=== PATIENT | female | born 1940 | race Caucasian/White ===

== ENCOUNTER 2023-11-17 19:02 | Inpatient (IN) | payer MEDICARE, OTHER, SELFPAY ==
[2023-11-17 15:23] VITALS: BP 124/81
[2023-11-17 16:20] VITALS: BP 142/79; BMI 23.3
--- NOTE | 2023-11-17 16:41 | ED.GENMED ---
History of Present Illness
General
Chief Complaint: Skin Problem
Source: patient and family
Exam Limitations: none
Time Seen by Provider: 11/17/23 16:07
Nursing documentation reviewed up to this point in time: agreed with
Travel History
Have you had any contact with someone who has COVID-19?: No
Do you have any symptoms of coronavirus? Fever > 100 degrees, chills, cough, shortness of breath, sore throat, loss of taste or smell, muscle aches, or headache?: No
History of Present Illness
History of Present Illness:
The patient is an 10-year-old female who reports worsening swelling and redness of her left lower leg. Patient was recently evaluated by her primary care doctor and had been placed on Keflex for the skin infection. Patient reports that despite 10
days of Keflex, the redness is spreading upwards towards her knee. She denies fevers and chills. Patient reports she is on blood thinners for A-fib. She denies fever.
Past History
Past History
ED Past Medical History: Arrthythmia, CAD and HTN
ED Past Surgical History: Cardiac
Social History
Tobacco: Other
Alcohol: Other
Drug: None
Personal: Other
Living: with family
Employment: Retired
Family History
Family History: Other
Review of Systems
Review of Systems
Allergies reviewed?: Yes
All Other Systems: ROS reviewed and negative except as documented in HPI and ROS
Constitutional: Reports no symptoms
EENT: Reports no symptoms
Respiratory: Reports no symptoms
Cardiac: Reports no symptoms
ABD/GI: Reports no symptoms
: Reports no symptoms
Musculoskeletal: Reports edema
Skin: Reports other
Neurological: Reports no symptoms
Endocrine: Reports no symptoms
Hematologic/Lymphatic: Reports no symptoms
Psychiatric: Reports no symptoms
Phy Exam
Physical Exam
Physical Exam:
Physical Exam
General: no apparent distress, not acutely ill
Neck: supple. no meningeal signs. normal psoterior pharynx
Heart: s1/s2 regular rate and rhythm, no murmur. equal radial pulses.
Lungs: no acute respiratory distress. clear bilaterally
Abdomen: normal bowel sounds. not tender. no CVAT
Neuro: alert and oriented. no focal neurological deficits
Skin: Skin, erythematous and warm skin circumferential left lower extremity. Small open wound anterior left ankle area. Mild streaking redness right medial lower leg area
Psychiatric: well kept. interactive and cooperative
Extremities: Left lower extremity edema. No edema right lower extremity. Strong pulses bilateral feet.
Course
Orders/Labs/Results
Orders:
Orders
11/17/23 16:45
Legs, Bilateral US [US Periph Venous LOWER Ext Aaron] Urgent
Comment:
Reason For Exam: bilateral leg redness, L greater than R
11/17/23 17:13
Complete Blood Count/With Diff Urgent
Comprehensive Metabolic Panel Urgent
Blood Culture Q30M
MISHA Source: Blood/Venous
Specimen Description:
11/17/23 17:26
Acetaminophen [Tylenol] 1,000 mg .ROUTE .STK-MED ONE
11/17/23 17:27
Acetaminophen [Tylenol] 1,000 mg PO NOW STA
11/17/23 17:28
Blood Culture Q30M
MISHA Source: Blood/Venous
Specimen Description:
11/17/23 18:30
Vancomycin [Vancocin] 1,500 mg 0.9% Sodium Chloride [Nss] 20 ml 0.9% Sodium Chloride 250 ml [Nss] 250 ml IV NOW
11/17/23 18:31
Admit/Transfer Patient As Directed
Co-Sign Provider:
Level of Care: Inpatient admission
Assign to:: Telemetry
Physician / Group: pasricha/medicine
Diagnosis: Cellulitis
Reason for Telemetry: Arrhythmia
Date to Stop Telemetry: 11/20/23
Time to Stop Telemetry: 11:00
Reason for Hospitalization: cellulitis
Expected length of stay greater than two midnights?: Yes
ELOS- Estimated Length of Stay in days: 3
I certify the patient meets the requirements for IP care: Yes
11/17/23 18:32
Code Status As Directed
Resuscitation Status: Full Code
11/20/23 11:00
DC Protocol for Telemetry ONCE
Abnormal Lab Results
11/17/23
17:13
RBC 3.69 L 10^6/uL
(4.20-5.40)
Hgb 11.9 L g/dL
(12.0-16.0)
Hct 34.3 L %
(37.0-47.0)
MCH 32.2 H pg
(27.0-31.0)
Abs Immat Gran (auto) 0.1 H 10^3/uL
(0-0.05)
Absolute Lymphs (auto) 1.0 L 10^3/uL
(1.2-3.4)
Absolute Monos (auto) 0.8 H 10^3/uL
(0.1-0.6)
Immature Gran % 0.6 H %
(0-0.5)
Lymphocytes % 13.1 L %
(20.5-51.1)
Monocytes % 10.2 H %
(1.7-9.3)
11/17/23 17:13
11/17/23 17:13
Vital Signs
Initial and Last Documented VS:
Initial Vital Signs
Temp Pulse Resp BP Pulse Ox
98.0 F 72 16 124/81 98
11/17/23 15:23 11/17/23 15:23 11/17/23 15:23 11/17/23 15:23 03/25/24 15:23
Last Documented Vital Signs
Temp Pulse Resp BP Pulse Ox
98.0 F 55 16 129/63 96
11/17/23 15:23 11/17/23 18:21 11/17/23 18:21 11/17/23 18:21 11/17/23 18:21
MDM/Problems Addressed
Differential Diagnosis Includes:
Left lower extremity cellulitis, left leg DVT, lymphangitis
MDM/Problems Addressed:
Patient presents with subacute redness and swelling of left lower extremity
Acute Exacerbation and/or Progression of Chronic Illness: HTN
*Radiology
Radiology exam reviewed: radiology read reviewed
*Pulse Oximetry
Patient hypoxic: no
*EKG
Interpreted by ED Provider?: NA
*Extractor Operator Helper Interpretation
Rate: Extractor Operator Helper- N/A
*Critical Care Note
Total Time (30-74mins, 75-104mins- exclusive of procedures): Not Applicable
Data Reviewed
Source: patient
ED Attending Note
-
Portions of this chart may have been created with voice recognition software.� Occasional wrong word or��sound alike� substitutions may have occurred due to the inherent limitations of voice recognition software.
Discharge Plan
Departure
Patient Disposition: Admit
Date of Disposition: 11/17/23
Time of Disposition: 18:26
Admit to: Med/Surg
Presentation/result/management discussed w/ accepting MD/DO: Hospitalist
Patient with high blood pressure during this ER visit?: Yes
Condition: Good
Covid-19: Not Applicable
Discharge Problem:
Cellulitis of left lower extremity
Referrals:
Azeb Matthews MD [Family Provider] -
Interventions
Interventions:
*Risk Screen - Suicide Last Done: 11/17/23 16:20
*General Assessment Last Done: 11/17/23 16:20
*Neglect/Abuse Screening Last Done: 11/17/23 16:20
ED- Fall Risk Assessment Last Done: 11/17/23 16:20
*ED COVID-19 Vaccine History Last Done: 11/17/23 15:23
ED-Skin Assessment Last Done: 11/17/23 16:20
[2023-11-17 17:10] VITALS: BP 152/64
[2023-11-17 17:24] LABS: % Basophils 0.8 % (0-2); % Eosinophils 2.4 % (0-6); % Immature Granulocytes 0.6 % (0-0.5); % Lymphocytes 13.1 % (20.5-51.1); % Monocytes 10.2 % (1.7-9.3); % Neutrophils 72.9 % (42.2-75.2); Absolute Basophils 0.1 10^3/uL (0-0.2); Absolute Eosinophils 0.2 10^3/uL (0-0.7); Absolute Immature Granulocytes 0.1 10^3/uL (0-0.05); Absolute Monocytes 0.8 10^3/uL (0.1-0.6); Absolute Neutrophils 5.8 10^3/uL (1.4-6.5); Hematocrit 34.3 % (37.0-47.0); Hemoglobin 11.9 g/dL (12.0-16.0); Mean Corp Hgb Conc. 34.7 g/dL (33.0-37.0); Mean Corpuscular Hgb 32.2 pg (27.0-31.0); Mean Platelet Volume 10.1 fL (7.4-10.4); Nucleated Red Blood Cells % 0 %; Platelet Count 279 10^3/uL (130-400); Red Blood Cell Count 3.69 10^6/uL (4.20-5.40); Red Cell Dist. Width 14.3 % (11.5-14.5); White Blood Cell Count 7.9 10^3/uL (4.8-10.8)
[2023-11-17] MEDS: TYLENOL 1000 MG PO (17:29)
[2023-11-17 17:52] LABS: ALT (SGPT) 14 U/L (0-35); AST (SGOT) 34 U/L (14-36); Albumin 4.5 g/dl (3.5-5.0); Alkaline Phosphatase 88 U/L (38-126); Blood Urea Nitrogen 16 mg/dl (7-17); Carbon Dioxide 28 mmol/L (22-30); Chloride 104 mmol/L (98-107); Estimated Creatinine Clearance 61 ml/min; Glucose 98 mg/dl (70-99); Potassium 4.1 mmol/L (3.5-5.1); Sodium 137 mmol/L (135-145); Total Bilirubin 0.9 mg/dl (0.2-1.3); Total Protein 7.1 g/dl (6.3-8.2); eGFR > 60.00
[2023-11-17 18:21] VITALS: BP 129/63
--- NOTE | 2023-11-17 18:29 | EDRN ---
Pharmacy called for vancomycin order at this time.
--- NOTE | 2023-11-17 18:37 | HPS.HSE ---
Family Physician
-
Family Physician: Azeb Matthews
Chief Complaint
-
Cellulitis refractory to Keflex
History of Present Illness
82-year-old presenting for worsening swelling redness of the left leg refractory to Keflex. Patient was on Keflex for 10 days, and despite this had continuing redness with tenderness trending up the knee. No trauama or bites. Patient afebrile,
heart rate 55, RR 16, normotensive 126/63. Labs grossly unremarkable, no previous lab work to compares. Lower extremity Doppler performed with no evidence of DVT.
Medical History
Past Medical History
Past Medical History: Reports Arrhythmia, CAD and HTN
Past Surgical History: Reports None
Social History
Tobacco: Non-smoker
Alcohol: None
Drug: None
Living: With Family
Family History
Family History: Not pertinent
Allergies / Home Medications
Allergies reflects when Allergies were last updated in [facility].
Home Medications with original date entered in [facility]
Allergy/Medication List:
Allergies
Allergy/AdvReac Type Severity Reaction Status Date / Time
celecoxib [From Celebrex] Allergy Unknown Verified 11/17/23 15:26
Home Medications
amlodipine 2.5 mg tablet 2.5 mg PO DAILY 11/17/23
ascorbic acid (vitamin C) 500 mg tablet (Vitamin C) 500 mg PO DAILY 11/17/23
biotin 1,000 mcg chewable tablet 1,000 mcg PO DAILY 11/17/23
calcium carbonate (Calcium 600) 600 mg PO DAILY 11/17/23
cholecalciferol (vitamin D3) 1 tab PO DAILY 11/17/23
lisinopril 40 mg tablet 40 mg PO DAILY 11/17/23
metoprolol succinate 100 mg tablet,extended release 24 hr 100 mg PO DAILY 11/17/23
mirabegron 50 mg tablet,extended release 24 hr (Myrbetriq) 50 mg PO DAILY 11/17/23
ovjsixyo-vfnf-wfai 8 mg-folic 400 mcg-K 50 mcg-lutein 300 mcg tablet (Centrum Silver Women) 1 tab PO DAILY 11/17/23
oxybutynin chloride 10 mg tablet,extended release 24 hr 10 mg PO DAILY 11/17/23
pitavastatin calcium 2 mg tablet (Livalo) 2 mg PO DAILY 11/17/23
rivaroxaban 20 mg tablet (Xarelto) 20 mg PO QPM 11/17/23
Review of Systems
-
History Source: Patient
A 12 point ROS was completed and negative except as noted: Yes
Physical Exam
Vital Signs
Vital Signs
Temp Pulse Resp BP Pulse Ox
98.0 F 55 16 129/63 96
11/17/23 15:23 11/17/23 18:21 11/17/23 18:21 11/17/23 18:21 11/17/23 18:21
Physical Exam
General: Well Developed, Well Nourished and No Apparent Distress
HEENT: NormoCephalic
Respiratory: Clear
Cardiac: S1/S2
GI: Non Tender
Musculoskeletal: No Clubbing
Skin: Other (erythematous and warm - left lower extremity. edematous)
Neuro: Awake, Alert, Oriented and AO x 3
Hematologic/Lymphatic: No Lymphadenopathy
Psych: Calm
Laboratory Results
-
11/17/23 17:13
11/17/23 17:13
Laboratory Results
Total Bilirubin 0.9 mg/dl (0.2-1.3) 11/17/23 17:13
AST 34 U/L (14-36) 11/17/23 17:13
ALT 14 U/L (0-35) 11/17/23 17:13
Alkaline Phosphatase 88 U/L (38-126) 11/17/23 17:13
Data Reviewed
-
Ultrasound: Image Personally Visualized and interpreted and Report Reviewed by me
Lab Data: Labs Reviewed by me
Impression/Plan
-
IMPRESSION:
82-year-old female with past medical history of CAD, hypertension, atrial fibrillation, hyperlipidemia now presenting for worsening left lower extremity erythema/cellulitis refractory to Keflex.
PLAN:
#Cellulitis
Refractory to Keflex
Continue vancomycin
Follow-up blood cultures
Wound care
ID consult in the morning
#Atrial fibrillation
� Continue metoprolol
� Continue Xarelto
#Hypertension
#Hyperlipidemia
#CAD
� Continue statin, beta-ly, PAM inhibitor, amlodipine, Xarelto
#DVT prophylaxis
� Xarelto
[2023-11-17] MEDS: VANCOCIN 300 MG IV (19:14)
[2023-11-17] MEDS: VANCOCIN 300 ML IV (19:14)
--- NOTE | 2023-11-17 19:39 | PTCARENOTE ---
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 Patient denies withdraw symptoms. Patient educated on signs and symptoms of withdraw.
[2023-11-17 20:00] VITALS: BMI 22.9
--- NOTE | 2023-11-17 20:23 | PHA.VAN.IN ---
Assessment
- Assessment
Renal Function: Unknown baseline
Plan
- Plan
Initial / Loading Dose: vanc 1500mg administered in ED @ 191
Maintenance Regimen: dosing by level
Monitoring: random level 11/17 599
Pharmacokinetics Vancomycin I
- -
Patient Age: 82
Patient Sex: Female
Vancomycin Day #: 1
Indication: Skin And Soft Tissue
Requesting Provider: Dr. Gamino
Pertinent Antimicrobial Allergies:
no pertinent antimicrobial allergies
Height / Weight:
Height 5 ft 6.5 in
Actual Weight 66.5 kg
- Vital Signs / Lab Results
Temp Pulse Resp BP Pulse Ox
98.0 F 55 16 129/63 96
11/17/23 15:23 11/17/23 18:21 11/17/23 18:21 11/17/23 18:21 11/17/23 18:21
Lab Results - Hematology
11/17/23
17:13
WBC 7.9
Lab Results - Chemistry
11/17/23
17:13
BUN 16
Creatinine 0.7
Estimated Creat Clear 61
Albumin 4.5
[2023-11-17] MEDS: XARELTO PO (21:10)
[2023-11-17] MEDS: LR 1000 IV (21:33)
[2023-11-17 23:00] VITALS: BP 124/58
[2023-11-18 03:44] VITALS: BP 126/59
[2023-11-18 05:47] LABS: Hematocrit 30.2 % (37.0-47.0); Hemoglobin 10.3 g/dL (12.0-16.0); Mean Corp Hgb Conc. 34.1 g/dL (33.0-37.0); Mean Corpuscular Hgb 31.7 pg (27.0-31.0); Mean Corpuscular Volume 92.9 fL (81.0-99.0); Mean Platelet Volume 10.5 fL (7.4-10.4); Platelet Count 232 10^3/uL (130-400); Red Blood Cell Count 3.25 10^6/uL (4.20-5.40); Red Cell Dist. Width 14.3 % (11.5-14.5); White Blood Cell Count 6.8 10^3/uL (4.8-10.8)
--- NOTE | 2023-11-18 05:47 | PTCARENOTE ---
Pt AAOx3, ambulated from stretcher with rolling walker with standby assist. Pt admitted with left lower extremity cellulitis now being treated with IV antibiotics. R AC IV C/D/I, infusing IVF without issues. Lungs clear, pt on room air. No N/V
or stools this shift. Voiding to bedside commode. Awaiting further plan.
[2023-11-18 06:04] LABS: ALT (SGPT) 11 U/L (0-35); AST (SGOT) 23 U/L (14-36); Albumin 3.6 g/dl (3.5-5.0); Alkaline Phosphatase 81 U/L (38-126); Blood Urea Nitrogen 14 mg/dl (7-17); Calcium 8.9 mg/dl (8.4-10.2); Carbon Dioxide 28 mmol/L (22-30); Chloride 103 mmol/L (98-107); Estimated Creatinine Clearance 71 ml/min; Glucose 97 mg/dl (70-99); Magnesium 1.8 mg/dl (1.6-2.3); Potassium 3.5 mmol/L (3.5-5.1); Sodium 138 mmol/L (135-145); Total Bilirubin 0.9 mg/dl (0.2-1.3); Total Protein 5.9 g/dl (6.3-8.2); eGFR > 60.00
[2023-11-18 06:11] LABS: Vancomycin Random 13.8 ug/ml
[2023-11-18 07:19] VITALS: BP 140/60
[2023-11-18] MEDS: NORVASC 2.5 MG PO (09:03)
[2023-11-18] MEDS: LIPITOR 10 MG PO (09:03)
[2023-11-18] MEDS: ZESTRIL 40 MG PO (09:03)
[2023-11-18] MEDS: TOPROL XL 100 MG PO (09:03)
[2023-11-18] MEDS: OSCAL CAL 500 500 MG PO (09:03)
--- NOTE | 2023-11-18 09:29 | PHA.VAN.FU ---
Vancomycin Assessment / Plan
- Assessment
Renal Function: Stable
WBC's are: WNL
In the past 24 hrs, patient has been: Afebrile
- Assessment - Therapeutic Drug Monitoring
Random Level: 13.8 - drawn ~10H after 1500mg loading dose
- Dosing Plan
Dosing by Level: Re-dose today (Vanc 500mg BID x2)
Will follow level trends for now to ensure patient clearing appropriately for Q12H dosing
500mg x1 now then additional 500mg at 1800
- Monitoring Plan
Random Level: 11/18 06
- Follow Up
Pharmacy will continue to follow.
Vancomycin Follow UP
- -
Patient Age: 82
Patient Sex: Female
Vancomycin Day #: 2
Indication: Skin And Soft Tissue
Requesting Provider: Dr. Gamino
Pertinent Antimicrobial Allergies:
no pertinent antimicrobial allergies
Height / Weight:
Height 5 ft 6.5 in
Actual Weight 65.272 kg
- Vital Signs / Lab Results
Temp Pulse Resp BP Pulse Ox
98.2 F 52 16 140/60 96
11/18/23 07:19 11/18/23 07:19 11/18/23 07:19 11/18/23 07:19 11/18/23 07:19
Lab Results - Hematology
11/17/23 11/18/23
17:13 05:18
WBC 7.9 6.8
Lab Results - Chemistry
11/17/23 11/18/23
17:13 05:18
BUN 16 14
Creatinine 0.7 0.6
Estimated Creat Clear 61 71
Albumin 4.5 3.6
Microbiology Results
11/18/23 01:01 Nasal Screen MRSA (PCR) - Final
Nose MRSA not detected - performed by PCR methodology.
Therapeutic Drug Monitoring
Random Vancomycin 13.8 ug/ml 11/18/23 05:18
[2023-11-18] MEDS: VANCOCIN HCL 500 MG 100 IV (09:54)
[2023-11-18 11:18] VITALS: BP 135/62
--- NOTE | 2023-11-18 12:05 | CM ---
Spoke with pt at bedside
Pt lives in an apartment with her . There is an elevator in building, currently not functioning
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
DME - rollator x4, rolling walker x 4, cane
Denies past SNF/HH for self. has used [facility] in past
Will have ride at d/c
PCP - Dr Laura Matthews
Pharm - [facility]
CM will follow for d/c needs. Prefers [facility] if needed
Plan - anticipate home no needs
[2023-11-18] MEDS: LR 1000 IV (12:07)
--- NOTE | 2023-11-18 13:37 | W.PN.HOSP.TC ---
Today's Communication/Plan
-
cont iv abx; switch to cefazolin
Assessment / Plan
Assessment / Plan
General: Well Developed, Well Nourished and No Apparent Distress
HEENT: NormoCephalic
Respiratory: Clear
Cardiac: S1/S2
GI: Non Tender
Musculoskeletal: No Clubbing
Skin: Other (erythematous and warm - left lower extremity.� edematous - improving fom yesterday)
Neuro: Awake, Alert, Oriented and AO x 3
Hematologic/Lymphatic: No Lymphadenopathy
Psych: Calm
82-year-old female with past medical history of CAD, hypertension, atrial fibrillation, hyperlipidemia now presenting for worsening left lower extremity erythema/cellulitis refractory to Keflex.
PLAN:
#Cellulitis
Refractory to Keflex
MRSA negative; DC vanco
Start Cefazolin
Follow-up blood cultures
Wound care
#Atrial fibrillation
� Continue metoprolol
� Continue Xarelto
#Hypertension
#Hyperlipidemia
#CAD
� Continue statin, beta-ly, PAM inhibitor, amlodipine, Xarelto
#DVT prophylaxis
� Xarelto
Anticipated Discharge: 24 - 48 hours
Subjective/Interval History
-
Date of Service: November 18, 2023
cellulitis improving
Objective Data
-
Labs:
Laboratory Results
11/18/23
05:18
WBC 6.8
Hgb 10.3 L
Hct 30.2 L
Plt Count 232
Sodium 138
Potassium 3.5
Chloride 103
Carbon Dioxide 28
BUN 14
Creatinine 0.6
Glucose 97
Calcium 8.9
Total Bilirubin 0.9
AST 23
ALT 11
Alkaline Phosphatase 81
Vital Signs:
Vital Signs
Temp Pulse Resp BP Pulse Ox
98.0 F 50 17 135/62 94
11/18/23 11:18 11/18/23 11:18 11/18/23 11:18 11/18/23 11:18 11/18/23 11:18
Review of Systems
-
History Source: Patient
All other systems: Not reviewed unless documented
Data Reviewed
-
Ultrasound: Image personally visualized and interpreted and Report Reviewed by me
Labs: Labs Reviewed by me
[2023-11-18 15:30] VITALS: BP 146/61
[2023-11-18] MEDS: ANCEF 10 IV ×2 (17:33→23:11)
[2023-11-18] MEDS: XARELTO 20 MG PO (17:33)
[2023-11-18 19:29] VITALS: BP 141/58
[2023-11-18] MEDS: TYLENOL 650 MG PO (21:43)
[2023-11-19] VITALS (8 sets, daily range): BP systolic 129–180; BP diastolic 50–80
--- NOTE | 2023-11-19 04:44 | DOWNTIME ---
There was a [email or web address] Client Paper Tube Grader Downtime on 11/19/2023 from 0100 to 11/19/2023 at 0322. Downtime documentation of patient's care, including medication administrations, has been reconciled in the electronic record per guidelines. Refer to the
patient's paper chart under the miscellaneous tab to see printed paper medication records and downtime forms.
[2023-11-19 05:57] LABS: Hemoglobin 10.8 g/dL (12.0-16.0); Mean Corp Hgb Conc. 33.8 g/dL (33.0-37.0); Mean Corpuscular Hgb 31.9 pg (27.0-31.0); Mean Corpuscular Volume 94.4 fL (81.0-99.0); Mean Platelet Volume 10.5 fL (7.4-10.4); Platelet Count 228 10^3/uL (130-400); Red Blood Cell Count 3.39 10^6/uL (4.20-5.40); Red Cell Dist. Width 14.4 % (11.5-14.5); White Blood Cell Count 8.8 10^3/uL (4.8-10.8)
[2023-11-19 07:04] LABS: ALT (SGPT) 10 U/L (0-35); AST (SGOT) 26 U/L (14-36); Albumin 3.5 g/dl (3.5-5.0); Alkaline Phosphatase 79 U/L (38-126); Blood Urea Nitrogen 11 mg/dl (7-17); Calcium 9.2 mg/dl (8.4-10.2); Carbon Dioxide 27 mmol/L (22-30); Chloride 105 mmol/L (98-107); Estimated Creatinine Clearance 70 ml/min; Glucose 101 mg/dl (70-99); Potassium 3.7 mmol/L (3.5-5.1); Sodium 137 mmol/L (135-145); Total Bilirubin 0.6 mg/dl (0.2-1.3); eGFR > 60.00
[2023-11-19] MEDS: ANCEF 10 IV ×2 (07:40→15:13)
[2023-11-19] MEDS: OSCAL CAL 500 500 MG PO (07:40)
[2023-11-19] MEDS: LIPITOR 10 MG PO (07:40)
[2023-11-19] MEDS: NORVASC 2.5 MG PO (07:40)
[2023-11-19] MEDS: TOPROL XL 100 MG PO (07:41)
[2023-11-19] MEDS: ZESTRIL 40 MG PO (07:41)
--- NOTE | 2023-11-19 15:50 | CM ---
Case Management following for d/c planning
Cont IV Abx - now on cefazolin
Cellulitis improving
Plan - home no needs
[2023-11-19] MEDS: XARELTO 20 MG PO (17:32)
[2023-11-19] MEDS: TYLENOL 650 MG PO (22:11)
[2023-11-20] MEDS: ANCEF 10 IV ×2 (00:26→08:57)
[2023-11-20 03:35] VITALS: BP 155/71
[2023-11-20 05:51] LABS: Hematocrit 33.1 % (37.0-47.0); Hemoglobin 11.7 g/dL (12.0-16.0); Mean Corp Hgb Conc. 35.3 g/dL (33.0-37.0); Mean Corpuscular Hgb 32.1 pg (27.0-31.0); Mean Corpuscular Volume 90.9 fL (81.0-99.0); Mean Platelet Volume 10.5 fL (7.4-10.4); Platelet Count 248 10^3/uL (130-400); Red Blood Cell Count 3.64 10^6/uL (4.20-5.40); Red Cell Dist. Width 14.2 % (11.5-14.5); White Blood Cell Count 12.6 10^3/uL (4.8-10.8)
[2023-11-20 06:33] LABS: ALT (SGPT) < 10 U/L (0-35); AST (SGOT) 28 U/L (14-36); Albumin 4.1 g/dl (3.5-5.0); Alkaline Phosphatase 94 U/L (38-126); Blood Urea Nitrogen 12 mg/dl (7-17); Calcium 9.3 mg/dl (8.4-10.2); Carbon Dioxide 27 mmol/L (22-30); Chloride 101 mmol/L (98-107); Estimated Creatinine Clearance 70 ml/min; Glucose 102 mg/dl (70-99); Potassium 3.6 mmol/L (3.5-5.1); Sodium 136 mmol/L (135-145); Total Bilirubin 0.7 mg/dl (0.2-1.3); Total Protein 6.7 g/dl (6.3-8.2); eGFR > 60.00
[2023-11-20 07:00] VITALS: BP 163/67
[2023-11-20] MEDS: ZESTRIL 40 MG PO (08:59)
[2023-11-20] MEDS: OSCAL CAL 500 500 MG PO (09:00)
[2023-11-20] MEDS: TOPROL XL 100 MG PO (09:00)
[2023-11-20] MEDS: NORVASC 2.5 MG PO (09:00)
[2023-11-20] MEDS: LIPITOR 10 MG PO (09:00)
[2023-11-20] MEDS: TYLENOL 650 MG PO ×2 (10:01→17:33)
[2023-11-20 11:00] VITALS: BP 148/68
[2023-11-20 11:21] LABS: Uric Acid 5.6 mg/dl (2.5-6.2)
--- NOTE | 2023-11-20 12:16 | W.PN.HOSP.TC ---
Today's Communication/Plan
-
switch to keflex
Colchicine, NSAIDS
Assessment / Plan
Assessment / Plan
General: Well Developed, Well Nourished and No Apparent Distress
HEENT: NormoCephalic
Respiratory: Clear
Cardiac: S1/S2
GI: Non Tender
Musculoskeletal: No Clubbing
Skin: Other (erythematous and warm - left lower extremity.� edematous - improving fom yesterday)
Neuro: Awake, Alert, Oriented and AO x 3
Hematologic/Lymphatic: No Lymphadenopathy
Psych: Calm
82-year-old female with past medical history of CAD, hypertension, atrial fibrillation, hyperlipidemia now presenting for worsening left lower extremity erythema/cellulitis refractory to Keflex.
PLAN:
#Cellulitis
Refractory to Keflex
MRSA negative; DC vanco
Cefazolin - switch to cephalexin
blood cultures neg
Wound care
#Gout Flare
-most likely 2/2 to acute infection
-provide colchicine
-NSAIDS, PPI
-F/u outpatient
#Atrial fibrillation
� Continue metoprolol
� Continue Xarelto
#Hypertension
#Hyperlipidemia
#CAD
� Continue statin, beta-ly, PAM inhibitor, amlodipine, Xarelto
#DVT prophylaxis
� Xarelto
Anticipated Discharge: Within 24 hours
Subjective/Interval History
-
Date of Service: November 20, 2023
large left toe ondule - appears to be gout - in pain; Erythema/cellultiis improved
Objective Data
-
Labs:
Laboratory Results
11/20/23
05:36
WBC 12.6 H
Hgb 11.7 L
Hct 33.1 L
Plt Count 248
Sodium 136
Potassium 3.6
Chloride 101
Carbon Dioxide 27
BUN 12
Creatinine 0.5 L
Glucose 102 H
Calcium 9.3
Total Bilirubin 0.7
AST 28
ALT < 10
Alkaline Phosphatase 94
Vital Signs:
Vital Signs
Temp Pulse Resp BP Pulse Ox
99.4 F 64 18 163/67 97
11/20/23 07:00 11/20/23 08:59 11/20/23 07:00 11/20/23 08:59 11/20/23 07:00
I&O
11/19/23 11/20/23 11/21/23
06:59 06:59 06:59
Intake Total 900 / 900 480 / 480
Balance 900 / 900 480 / 480
Review of Systems
-
History Source: Patient
All other systems: Not reviewed unless documented
Data Reviewed
-
Ultrasound: Image personally visualized and interpreted and Report Reviewed by me
Labs: Labs Reviewed by me
[2023-11-20] MEDS: KEFLEX 500 MG PO ×3 (12:42→21:57)
[2023-11-20] MEDS: PROTONIX 40 MG PO (12:42)
[2023-11-20] MEDS: COLCHICINE 1.19999999999999996 MG PO (12:56)
[2023-11-20 15:00] VITALS: BP 133/51
[2023-11-20] MEDS: COLCHICINE 0.599999999999999978 MG PO (15:28)
--- NOTE | 2023-11-20 16:13 | CM ---
Supervisor Drilling And Shooting following for d/c planning
Antibiotics changed to keflex
For foot x ray today
CM will follow for needs
Plan - anticipate home no needs
[2023-11-20] MEDS: XARELTO 20 MG PO (17:30)
[2023-11-20 19:55] VITALS: BP 110/74
--- NOTE | 2023-11-20 22:00 | PTCARENOTE ---
Pt complained of 9/10 pain throughout L foot. PRESS WRITER made aware, new order provided, see MAR. IV ketorolac ordered, MAR triggered warning due to hx of allergy to Celebrex. Pt informed this RN she had a reaction to Celebrex 40 years ago with minor lip
swelling. Will stand at bedside and assess for reaction.
[2023-11-20] MEDS: FLUSH (NSS) 2 FLUSH IV (22:36)
[2023-11-20] MEDS: TORADOL 15 MG IV (22:36)
--- NOTE | 2023-11-20 23:10 | PTCARENOTE ---
Pt bradycardic, HR 30's, pt asymptomatic, resting in bed. SYSTEMS SPEC made aware, no new orders provided. Will continue to monitor.
[2023-11-20 23:49] VITALS: BP 120/58
[2023-11-21 05:47] LABS: Hematocrit 33.6 % (37.0-47.0); Hemoglobin 11.6 g/dL (12.0-16.0); Mean Corp Hgb Conc. 34.5 g/dL (33.0-37.0); Mean Corpuscular Hgb 32.1 pg (27.0-31.0); Mean Corpuscular Volume 93.1 fL (81.0-99.0); Mean Platelet Volume 10.7 fL (7.4-10.4); Platelet Count 241 10^3/uL (130-400); Red Blood Cell Count 3.61 10^6/uL (4.20-5.40); Red Cell Dist. Width 14.2 % (11.5-14.5); White Blood Cell Count 9.7 10^3/uL (4.8-10.8)
[2023-11-21 06:03] LABS: ALT (SGPT) < 10 U/L (0-35); AST (SGOT) 24 U/L (14-36); Alkaline Phosphatase 87 U/L (38-126); Blood Urea Nitrogen 20 mg/dl (7-17); Calcium 9.2 mg/dl (8.4-10.2); Carbon Dioxide 29 mmol/L (22-30); Chloride 96 mmol/L (98-107); Estimated Creatinine Clearance 60 ml/min; Glucose 104 mg/dl (70-99); Potassium 3.6 mmol/L (3.5-5.1); Sodium 135 mmol/L (135-145); Total Bilirubin 0.9 mg/dl (0.2-1.3); Total Protein 6.4 g/dl (6.3-8.2); eGFR > 60.00
[2023-11-21 07:12] VITALS: BP 152/75
[2023-11-21] MEDS: COLCHICINE 0.599999999999999978 MG PO (08:41)
[2023-11-21] MEDS: LIPITOR 10 MG PO (08:41)
[2023-11-21] MEDS: PROTONIX 40 MG PO (08:41)
[2023-11-21] MEDS: NORVASC 2.5 MG PO (08:42)
[2023-11-21] MEDS: ZESTRIL 40 MG PO (08:42)
[2023-11-21] MEDS: TOPROL XL 100 MG PO (08:42)
[2023-11-21] MEDS: OSCAL CAL 500 500 MG PO (08:42)
[2023-11-21] MEDS: KEFLEX 500 MG PO ×2 (08:42→12:21)
[2023-11-21 11:04] VITALS: BP 146/70
--- NOTE | 2023-11-21 12:11 | W.PN.HOSP.TC ---
Addendum entered and electronically signed by Philip Gamino MD 11/21/23 15:37:
[id number]
Original Note:
Today's Communication/Plan
-
complete 10 day course of abx - cephalexin 500mg q6h
colchicine BID - stop 2 days after the flare
Assessment / Plan
Assessment / Plan
General: Well Developed, Well Nourished and No Apparent Distress
HEENT: NormoCephalic
Respiratory: Clear
Cardiac: S1/S2
GI: Non Tender
Musculoskeletal: No Clubbing
Skin: Other (erythematous and warm - left lower extremity.� edematous - improving fom yesterday)
Neuro: Awake, Alert, Oriented and AO x 3
Hematologic/Lymphatic: No Lymphadenopathy
Psych: Calm
82-year-old female with past medical history of CAD, hypertension, atrial fibrillation, hyperlipidemia now presenting for worsening left lower extremity erythema/cellulitis refractory to Keflex.
PLAN:
#Cellulitis
Refractory to Keflex
MRSA negative; DC vanco
Cefazolin - switch to cephalexin - x 8 days to complete 10 day course
blood cultures neg
Wound care
#Gout Flare
-most likely 2/2 to acute infection
-provide colchicine - much improved
-Educated on gout
-DC on colchicine - dc as outpatient
-F/u outpatient
#Atrial fibrillation
� Continue metoprolol
� Continue Xarelto
#Hypertension
#Hyperlipidemia
#CAD
� Continue statin, beta-ly, PAM inhibitor, amlodipine, Xarelto
#DVT prophylaxis
� Xarelto
More than 30 minutes spent in discharge including
Final examination of the patient
Summarizing hospital stay
Instructions for continuing care to all relevant caregivers
Preparation of discharge records, prescriptions, and referral forms
Total time spent (35 in minutes):
Anticipated Discharge: Today
Subjective/Interval History
-
Date of Service: November 21, 2023
feels much better today, pain much improved. cellultitis drastically improved
Objective Data
-
Labs:
Laboratory Results
11/21/23
05:20
WBC 9.7
Hgb 11.6 L
Hct 33.6 L
Plt Count 241
Sodium 135
Potassium 3.6
Chloride 96 L
Carbon Dioxide 29
BUN 20 H
Creatinine 0.7
Glucose 104 H
Calcium 9.2
Total Bilirubin 0.9
AST 24
ALT < 10
Alkaline Phosphatase 87
Vital Signs:
Vital Signs
Temp Pulse Resp BP Pulse Ox
97.4 F 67 17 152/75 96
11/21/23 07:12 11/21/23 08:42 11/21/23 07:12 11/21/23 08:42 11/21/23 07:12
I&O
11/20/23 11/21/23 11/22/23
06:59 06:59 06:59
Intake Total 480 / 480 1080 / 1080
Balance 480 / 480 1080 / 1080
Review of Systems
-
History Source: Patient
All other systems: Not reviewed unless documented
Data Reviewed
-
Ultrasound: Image personally visualized and interpreted and Report Reviewed by me
Labs: Labs Reviewed by me
--- NOTE | 2023-11-21 12:15 | W.DS.TRANS ---
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
-
Discharge Instructions:
Discharge Diagnosis/Procedures #Cellulitis
#Gout Flare
Diet Low Cholesterol,Low Fat
Activity As tolerated
Blood Work cbc and bmp in 1 week with pcp
Instructions:
Stand-Alone Forms:
Changes to Home Medications: Yes
Discharge Medications:
DC Medications w/original date entered in [employer]
amlodipine 2.5 mg tablet 2.5 mg PO DAILY Blood Pressure 11/17/23
ascorbic acid (vitamin C) 500 mg tablet (Vitamin C) 500 mg PO DAILY Supplement 11/17/23
biotin 1,000 mcg chewable tablet 1,000 mcg PO DAILY Supplement 11/17/23
calcium carbonate (Calcium 600) 600 mg PO DAILY Supplement 11/17/23
cholecalciferol (vitamin D3) 1 tab PO DAILY Supplement 11/17/23
lisinopril 40 mg tablet 40 mg PO DAILY Blood Pressure 11/17/23
metoprolol succinate 100 mg tablet,extended release 24 hr 100 mg PO DAILY Blood Pressure 11/17/23
mirabegron 50 mg tablet,extended release 24 hr (Myrbetriq) 50 mg PO DAILY Urinary Issue 11/17/23
gbdsxplk-rpdw-ihom 8 mg-folic 400 mcg-K 50 mcg-lutein 300 mcg tablet (Centrum Silver Women) 1 tab PO DAILY Supplement 11/17/23
oxybutynin chloride 10 mg tablet,extended release 24 hr 10 mg PO DAILY Urinary Issue 11/17/23
pitavastatin calcium 2 mg tablet (Livalo) 2 mg PO DAILY High Cholesterol 11/17/23
rivaroxaban 20 mg tablet (Xarelto) 20 mg PO QPM Blood Clot Prevention/Tx 11/17/23
cephalexin 500 mg capsule 500 mg PO QID 8 days #32 caps 11/21/23
colchicine 0.6 mg tablet 0.6 mg PO BID 14 days #28 tabs 11/21/23
Home Medication Changes
cephalexin 500 mg capsule 500 mg PO QID 8 days #32 caps 11/21/23
colchicine 0.6 mg tablet 0.6 mg PO BID 14 days #28 tabs 11/21/23
Pending Results: No
--- NOTE | 2023-11-21 12:18 | W.DS.TRANS ---
DC Summary - [employer]st
-
Discharge Instructions:
Discharge Diagnosis/Procedures #Cellulitis
#Gout Flare
Diet Low Cholesterol,Low Fat
Activity As tolerated
Blood Work cbc and bmp in 1 week with pcp
Instructions:
Stand-Alone Forms:
Changes to Home Medications: Yes
Discharge Medications:
DC Medications w/original date entered in [facility]
amlodipine 2.5 mg tablet 2.5 mg PO DAILY Blood Pressure 11/17/23
ascorbic acid (vitamin C) 500 mg tablet (Vitamin C) 500 mg PO DAILY Supplement 11/17/23
biotin 1,000 mcg chewable tablet 1,000 mcg PO DAILY Supplement 11/17/23
calcium carbonate (Calcium 600) 600 mg PO DAILY Supplement 11/17/23
cholecalciferol (vitamin D3) 1 tab PO DAILY Supplement 11/17/23
lisinopril 40 mg tablet 40 mg PO DAILY Blood Pressure 11/17/23
metoprolol succinate 100 mg tablet,extended release 24 hr 100 mg PO DAILY Blood Pressure 11/17/23
mirabegron 50 mg tablet,extended release 24 hr (Myrbetriq) 50 mg PO DAILY Urinary Issue 11/17/23
rkvxrxsa-xuqo-pthh 8 mg-folic 400 mcg-K 50 mcg-lutein 300 mcg tablet (Centrum Silver Women) 1 tab PO DAILY Supplement 11/17/23
oxybutynin chloride 10 mg tablet,extended release 24 hr 10 mg PO DAILY Urinary Issue 11/17/23
pitavastatin calcium 2 mg tablet (Livalo) 2 mg PO DAILY High Cholesterol 11/17/23
rivaroxaban 20 mg tablet (Xarelto) 20 mg PO QPM Blood Clot Prevention/Tx 11/17/23
cephalexin 500 mg capsule 500 mg PO QID 8 days #32 caps 11/21/23
colchicine 0.6 mg tablet 0.6 mg PO BID 14 days #28 tabs 11/21/23
Home Medication Changes
cephalexin 500 mg capsule 500 mg PO QID 8 days #32 caps 11/21/23
colchicine 0.6 mg tablet 0.6 mg PO BID 14 days #28 tabs 11/21/23
Pending Results: No
--- NOTE | 2023-11-21 12:39 | CM ---
Addendum entered by Jana Reardon 11/21/23 12:42:
IMM benefit explained and signed
Case Management Consult completed
Original Note:
Plan: discharge to home with home health VN; patient's preference [facility]; son will provide transport home
== END 2023-11-21 14:38 | disposition home health service (06) | DRG 603 ==
LOC: 3 WEST ACU 19:02
PROVIDERS: ADMITTING PHYSICIAN Internal Medicine; EMERGENCY PHYSICIAN Emergency Medicine; FAMILY PHYSICIAN Internal Medicine
DX: L03.116 Cellulitis of left lower limb (principal); I48.91 Unspecified atrial fibrillation; I10 Essential (primary) hypertension; E78.5 Hyperlipidemia, unspecified; I25.10 Atherosclerotic heart disease of native coronary artery without angina pectoris; M10.9 Gout, unspecified
CPT/HCPCS: 73620; 80053; 80202; 83735; 84550; 85025; 85027; 87040; 87641; 93970; 99285

== ENCOUNTER → 2024-09-16 12:32 | Outpatient (REF) | payer OTHER, SELFPAY | LOC: HWRAD 12:32 | PROVIDERS: ATTENDING PHYSICIAN Podiatrist Foot & Ankle Surgery; FAMILY PHYSICIAN Internal Medicine | DX: M84.375A Stress fracture, left foot, initial encounter for fracture (principal) | CPT/HCPCS: 73630 ==

== ENCOUNTER 2024-11-27 09:42 | Emergency (ER) | payer OTHER, SELFPAY ==
[2024-11-27 09:45] VITALS: BP 217/85
[2024-11-27] MEDS: ROXICODONE 2.5 MG PO (11:11)
[2024-11-27 11:12] VITALS: BP 203/85
--- NOTE | 2024-11-27 11:16 | ED.GENMED ---
History of Present Illness
General
Chief Complaint: Musculo-Skeletal Complaint
Source: patient and family
Exam Limitations: none
Time Seen by Provider: 11/27/24 10:42
History of Present Illness
History of Present Illness:
Patient is an 84-year-old female with past medical history of CAD with cardiac stents in place, hypertension, hyperlipidemia, on Xarelto, who presents to the emergency department from home accompanied by her son for evaluation of left lower
extremity pain. Patient reports that it started around midnight or 1 AM this morning. Patient denies any known injury, trauma, overuse. Patient reports that she was unable to sleep all night due to the pain. Patient therefore decided to come to
the emergency department this morning. Patient reports taking 1000 mg of Tylenol yesterday without improvement in her symptoms. Patient reports that the pain is located over the inferior aspect of her knee and superior aspect of the lower leg.
Patient reports that that the area does feel a little swollen to her. Patient denies any numbness, weakness, tingling of the extremity. Patient reports that the pain does make it difficult for her to stand and bear weight. Patient denies similar
symptoms in the past.
Past History
Past History
ED Past Medical History: Arrthythmia, CAD and HTN
ED Past Surgical History: Cardiac
Social History
Tobacco: Other
Alcohol: Other
Drug: None
Personal: Other
Living: with family
Employment: Retired
Family History
Family History: Other
Review of Systems
Review of Systems
All Other Systems: Not applicable
Constitutional: Reports no symptoms; Denies fever or chills
EENT: Reports no symptoms
Respiratory: Reports no symptoms
Cardiac: Reports no symptoms
ABD/GI: Reports no symptoms
: Reports no symptoms
Musculoskeletal: Reports other (LLE pain/swelling)
Skin: Reports other (mild erythema to the left lower leg, not the area of the patient's pain, no warmth, no ttp, pt reports chronic)
Neurological: Reports no symptoms
Endocrine: Reports no symptoms
Hematologic/Lymphatic: Reports no symptoms
Psychiatric: Reports no symptoms
Phy Exam
General Physical Exam
General Presentation: well appearing and no apparent distress
General Skin: warm and dry
General Habitus: normal
General Mental: alert
General Hydration: appears well hydrated
ENT Exam
ENT Exam: EOMI, pharynx normal, neck supple and normocephalic
Eye Exam
Eye Exam: PERRL, cornea clear and conjunctiva normal
Neurological Exam
Neurological Exam: alert, oriented x3, no motor deficits and speech normal
Musculoskeletal Exam
Musculoskeletal Exam: full ROM and other (trace edema to inferior aspect of left knee/superior aspect left lower leg along with ttp, FROM of the knee w/o pain, 2+ DP pulse, SILT)
Skin Exam
Skin Exam: normal color, warm/dry, no rash and no petechia
Psychiatric Exam
Psychiatric Exam: normal mood/affect
Course
Orders/Labs/Results
Orders:
Orders
11/27/24 11:00
Oxycodone [Roxicodone] 2.5 mg PO NOW STA
CR Knee - Left 4 Or More View* Urgent
Comment:
Reason For Exam: left knee pain, atraumatic
Venous Doppler Lwr Ext Left [US Periph Venous LOWER Ext LT] Urgent
Comment:
Reason For Exam: left proximal calf pain/swelling
Vital Signs
Initial and Last Documented VS:
Initial Vital Signs
Temp Pulse Resp BP Pulse Ox
98 F 60 16 217/85 98
11/27/24 09:45 11/27/24 09:45 11/27/24 09:45 11/27/24 09:45 11/27/24 09:45
Last Documented Vital Signs
Temp Pulse Resp BP Pulse Ox
98 F 60 16 168/96 99
11/27/24 09:45 11/27/24 09:45 11/27/24 09:45 11/27/24 14:40 11/27/24 11:13
*Critical Care Note
Total Time (30-74mins, 75-104mins- exclusive of procedures): Not Applicable
Update Note
Update Note:
Patient is an 84-year-old female with past medical history as noted who presents the emergency department for evaluation of atraumatic left knee and lower leg pain. Patient reports some slight swelling as well. On arrival, patient is hypertensive.
She states that she is always hypertensive to this level when she goes to the doctors or to a hospital. She denies any dizziness, lightheadedness, chest pain, shortness of breath, paresthesias. On exam, patient is very well-appearing, she is in
no acute distress, she has slight edema to the left knee and proximal aspect of the left lower leg with mild tenderness to palpation, she has full range of motion of the knee, she is neurovascularly intact. There is a small area of erythema to the
distal aspect of the left lower leg however patient reports that this is a chronic skin change for her and that this is not the location of her pain. Radiographs demonstrate no bony abnormality to account for the patient's symptoms today.
Ultrasound demonstrates no evidence of DVT. On reevaluation, the patient's blood pressure is significantly improved. She reports that her pain is also significantly improved. She has been able to ambulate to and from the restroom multiple times
without difficulty and with a steady gait. At this time, I feel the patient is safe for discharge to home. Will recommend continued supportive care measures, close outpatient follow-up with her primary care provider for definitive diagnosis and
treatment. Patient and her son were also educated on return precautions, they expressed understanding of the plan and agreed.
ED Attending Note
-
Portions of this chart may have been created with voice recognition software.� Occasional wrong word or��sound alike� substitutions may have occurred due to the inherent limitations of voice recognition software.
Discharge Plan
Departure
Patient Disposition: Home (Routine Discharge)
Date of Disposition: 11/27/24
Time of Disposition: 13:45
Patient with high blood pressure during this ER visit?: Yes
Condition: Good
Covid-19: Not Applicable
Discharge Problem:
Acute pain of left lower extremity
Instructions: Musculoskeletal Pain
Prescriptions:
New
hydrocodone-acetaminophen 5-325 mg tablet
0.5 tab PO BID PRN (Reason: Pain) 3 Days Qty: 6 0RF
No Action
oxybutynin chloride 10 mg Tablet Extended Release 24hr
10 mg PO DAILY
metoprolol succinate 100 mg Tablet Extended Release 24 Hr
100 mg PO DAILY
amlodipine 2.5 mg Tablet
2.5 mg PO DAILY
calcium carbonate [Calcium 600] 600 mg calcium (1,500 mg) Tablet
600 mg PO DAILY
ascorbic acid (vitamin C) [Vitamin C] 500 mg Tablet
500 mg PO DAILY
lisinopril 40 mg Tablet
40 mg PO DAILY
pitavastatin calcium [Livalo] 2 mg Tablet
2 mg PO DAILY
Centrum Silver Women 8 mg iron-400 mcg-50 mcg Tablet
1 tab PO DAILY
Xarelto 20 mg Tablet
20 mg PO QPM
Patient Comments:
11/17/2023, last filled on 07/22/2023 for 30-day supply.
Myrbetriq 50 mg Tablet Extended Release 24 Hr
50 mg PO DAILY
biotin 1,000 mcg Tablet,Chewable
1,000 mcg PO DAILY
cholecalciferol (vitamin D3)
1 tab PO DAILY
colchicine 0.6 mg Tablet
0.6 mg PO BID 14 Days Qty: 28 0RF
Rx Instructions:
please stop 2 days after gout flare resolves
cephalexin 500 mg Capsule
500 mg PO QID 8 Days Qty: 32 0RF
Referrals:
Azeb Matthews MD [Family Provider] - Follow up in 2-3 days (Call for follow-up appointment)
Activity Restrictions/Additional Instructions:
You were seen in the emergency department for evaluation of pain in your left leg/knee. While you were in the emergency department you had an x-ray performed which shows evidence of arthritis but no other abnormality to account for your symptoms
today. You had an ultrasound which shows no evidence of a blood clot in your leg. You felt better after receiving pain medication. We feel it is safe for you to be discharged home but recommend that you try to rest and elevate your knee, ideally
above the level of your heart. You may alternate ice and heat to the affected areas for 20 minutes at a time 4-5 times a day. You may continue to take pain medication as prescribed if needed for severe pain. Please follow-up with your primary
care provider in the next few days to ensure improvement in your symptoms. Please return to the emergency department for increasing pain, swelling, redness, color change of the foot or toes, fever greater than 100.4 �F, or for any other worsening
or concerning symptoms.
Interventions
Interventions:
*Risk Screen - Suicide Last Done: 11/27/24 09:47
*General Assessment Last Done: 11/27/24 11:14
*Neglect/Abuse Screening Last Done: 11/27/24 09:47
*ED- Fall Risk Assessment Last Done: 11/27/24 11:14
*ED COVID-19 Vaccine History Last Done: 11/27/24 11:14
*Nursing Disposition Last Done: 11/27/24 14:40
ED-Musculoskeletal Assessment Last Done: 11/27/24 11:14
Discharge Date and Time
Discharge Date/Time: 11/27/24 14:42
Print Language: AMHARIC
[2024-11-27 13:53] VITALS: BP 186/112
[2024-11-27 14:40] VITALS: BP 168/96
== END 2024-11-27 14:42 | disposition home or self-care (01) ==
LOC: EMR 09:42
PROVIDERS: EMERGENCY PHYSICIAN Emergency Medicine; FAMILY PHYSICIAN Internal Medicine
DX: M79.662 Pain in left lower leg (principal); I25.10 Atherosclerotic heart disease of native coronary artery without angina pectoris; I10 Essential (primary) hypertension; E78.00 Pure hypercholesterolemia, unspecified; Z79.01 Long term (current) use of anticoagulants; Z95.5 Presence of coronary angioplasty implant and graft
CPT/HCPCS: 99284; 73564; 93971